=== PATIENT | female | born 1995 | race Hispanic/Latino ===

== ENCOUNTER → 2023-01-26 08:19 | Outpatient (CLI) | payer OTHER, SELFPAY | PROVIDERS: Referring Provider Family Medicine; Visit Provider Family Medicine | DX: Z23 Encounter for immunization (principal) | CPT/HCPCS: 90471; 90686 ==

== ENCOUNTER 2024-02-07 20:11 | Emergency (ER) | payer OTHER, SELFPAY ==
[2024-02-07 20:22] VITALS: BP 144/96; PULSE 93; RESP 18; O2SAT 99; BMI 35.7
--- NOTE | 2024-02-07 20:25 | ED_ITS ---
HPI - General Adult General Chief complaint: Urogenital-Female Stated complaint: poss kidney infection Time Seen by Provider: 02/07/24 20:21 Source: patient Mode of arrival: Ambulatory Limitations: no limitations History of Present Illness HPI narrative: 28-year-old female. History of frequent urinary tract infections. Earlier today checked her urine while at work and was positive for blood. Not having dysuria. Was having some right-sided flank pain. While driving home pain now in the left side. Severe onset. No vaginal bleeding or discharge. No change in bowel habits. No vomiting. Related Data Allergies Allergy/AdvReac Type Severity Reaction Status Date / Time No Known Drug Allergies Allergy Verified 02/07/24 20:27 Review of Systems Gastrointestinal Gastrointestinal: Reports system reviewed and no additional complaints, except as documented Genitourinary Genitourinary: Reports system reviewed and no additional complaints, except as documented Integumentary/Breasts Skin/Breast: Reports system reviewed and no additional complaints, except as documented Exam Initial Vital Signs Initial Vital Signs: Vital Signs Pulse Rate 93 H 02/07/24 20:22 Respiratory Rate 18 02/07/24 20:22 Blood Pressure 144/96 H 02/07/24 20:22 Pulse Oximetry 99 02/07/24 20:22 Oxygen Delivery Method Room Air 02/07/24 20:22 Const General: cooperative, comfortable and No ill appearing HENIN Head: normal to inspection and normocephalic GI Inspection: normal to inspection and non-distended Back/Spine/Pelvis Back: CVA tenderness (Mild bilateral CVA tenderness) Skin General: no rashes or lesions noted Neuro General: patient alert and patient awake Course Orders Ordered: ED Orders 02/07/24 20:32 Urine Microscopic Stat 02/07/24 20:33 CT kidney ureter bladder (KUB) Stat 02/07/24 21:22 Urine Culture Stat Vital Signs Vital signs: Vital Signs - 8 hr 02/07/24 20:22 02/07/24 20:29 02/07/24 21:41 Temperature 99 F Pulse Rate 93 H 71 Respiratory Rate 18 Blood Pressure 144/96 H 132/92 H Pulse Oximetry 99 99 Oxygen Delivery Method Room Air Room Air Medical Decision Making Lab Data Lab results reviewed: Yes I reviewed the patient's lab results. Labs: Lab Results 02/07/24 Range/Units 20:32 Urine RBC 5-10/hpf H (0-5/HPF) Urine WBC 0-1/hpf (0-5/HPF) Ur Squamous Epith Cells 10-30 /hpf H (0-5/HPF) Urine Bacteria Occasional (0-1) (None) Ur Culture Indicated? Cult not indicated Vol Urine Centrifuged 10ml (spun) Point of Care Testing Test Results Negative Urine Dip Bedside Urine Glucose Negative Bedside Urine Bilirubin - Negative Bedside Urine Ketone - Negative Urine Specific Chambers 1.025 Bedside Urine Occult Blood ++ Bedside Urine pH 6.0 Bedside Urine Protein - Negative Bedside Urine Urobilinogen - Negative Bedside Urine Nitrite - Negative Bedside Urine Leukocytes - Negative Esterase Point of care testing: Point of Care Testing Test Results Negative Urine Dip Bedside Urine Glucose Negative Bedside Urine Bilirubin - Negative Bedside Urine Ketone - Negative Urine Specific Chambers 1.025 Bedside Urine Occult Blood ++ Bedside Urine pH 6.0 Bedside Urine Protein - Negative Bedside Urine Urobilinogen - Negative Bedside Urine Nitrite - Negative Bedside Urine Leukocytes - Negative Esterase Imaging Data CT scan - abdomen/pelvis: Radiologist's Impression: PROCEDURE: CT KIDNEY URETER BLADDER (KUB) INDICATIONS: Flank pain and hematuria eval for stone TECHNIQUE: Axial sections were acquired from the lung bases to the pubic symphysis. Coronal and sagittal reformats were performed. For radiation dose reduction, the following was used: automated exposure control, adjustment of mA and/or kV according to patient size. COMPARISON: None. FINDINGS: Image quality: Diagnostic. Lower Chest: No significant findings. URINARY: Right Kidney: No stones or hydronephrosis. Right Ureter: No hydroureter. Left Kidney: No stones or hydronephrosis. Left Ureter: No hydroureter. Bladder: Normal wall thickness. No stones. ABDOMEN: Liver: No contour-deforming solid mass. Gallbladder: Status post cholecystectomy. Biliary ducts: No biliary dilation. Pancreas: No ductal dilation. Spleen: Size is within normal limits. Adrenal Glands: No adrenal nodules. Stomach and Bowel: Normal colonic caliber, without significant wall thickening. Small bowel loops and stomach are unremarkable. Peritoneum: No abnormal intraperitoneal fluid. No free air. Ventral Wall: Small fat containing periumbilical hernia Abdominal Nodes: No enlarged retroperitoneal or mesenteric lymph nodes. Vessels: Aorta and inferior vena cava are normal in size. PELVIS: Pelvic Organs: Mild contour irregularity of the anterior uterus likely related to a subserosal fibroid. Ovaries are symmetric. Pelvic Nodes: Unremarkable. Miscellaneous: No inguinal hernias are seen. Bones: Unremarkable. IMPRESSION: No obstructing stones or hydronephrosis. No acute abnormality identified in the abdomen or pelvis. MDM Narrative Medical decision making narrative: Urinalysis does show blood however no other indications of a urinary tract infection. test negative. CT scan also unremarkable without signs of nephrolithiasis/ureterolithiasis or pyelonephritis. Patient does not have any recent URI symptoms. No skin changes concerning for zoster. Unsure of the exact etiology of the patient's symptoms. A urine culture was pending at the time of her discharge we will wait for that before starting any antibiotics. Patient was given return precautions. Recommended follow-up with primary doctor because of the hematuria. She expressed understanding. Discharge Plan Departure Patient Disposition: Home Clinical Impression: Hematuria Instructions: DI for Hematuria Activity Restrictions/Additional Instructions: There is a urine culture pending at the time of your discharge and we will wait to start on any antibiotics until this results. I do recommend that you contact your primary care doctor for follow-up has you do need to have some follow-up because of the blood in your urine today. Return to the emergency department for new or worsening symptoms. Stand Alone Forms: Patient Portal/API, Work Release Note
[2024-02-07 20:29] VITALS: TEMP 37.2
--- NOTE | 2024-02-07 20:33 | DI.CT.S_ITS ---
PROCEDURE: CT KIDNEY URETER BLADDER (KUB) INDICATIONS: Flank pain and hematuria eval for stone TECHNIQUE: Axial sections were acquired from the lung bases to the pubic symphysis. Coronal and sagittal reformats were performed. For radiation dose reduction, the following was used: automated exposure control, adjustment of mA and/or kV according to patient size. COMPARISON: None. FINDINGS: Image quality: Diagnostic. Lower Chest: No significant findings. URINARY: Right Kidney: No stones or hydronephrosis. Right Ureter: No hydroureter. Left Kidney: No stones or hydronephrosis. Left Ureter: No hydroureter. Bladder: Normal wall thickness. No stones. ABDOMEN: Liver: No contour-deforming solid mass. Gallbladder: Status post cholecystectomy. Biliary ducts: No biliary dilation. Pancreas: No ductal dilation. Spleen: Size is within normal limits. Adrenal Glands: No adrenal nodules. Stomach and Bowel: Normal colonic caliber, without significant wall thickening. Small bowel loops and stomach are unremarkable. Peritoneum: No abnormal intraperitoneal fluid. No free air. Ventral Wall: Small fat containing periumbilical hernia Abdominal Nodes: No enlarged retroperitoneal or mesenteric lymph nodes. Vessels: Aorta and inferior vena cava are normal in size. PELVIS: Pelvic Organs: Mild contour irregularity of the anterior uterus likely related to a subserosal fibroid. Ovaries are symmetric. Pelvic Nodes: Unremarkable. Miscellaneous: No inguinal hernias are seen. Bones: Unremarkable. IMPRESSION: No obstructing stones or hydronephrosis. No acute abnormality identified in the abdomen or pelvis. Approved by: Reji Adkins M.D. on 02/07/2024 at 21:15
[2024-02-07 20:46] LABS: Bacteria Urine Occasional (0-1); RBC Urine 5-10/HPF (0-5/HPF); Urine Volume 10mL (spun); WBC Urine 0-1/HPF (0-5/HPF)
[2024-02-07 20:47] LABS: Culture Indicated Urine Cult Not Indicated; Squamous Epithelial Cell Urine 10-30 /HPF (0-5/HPF)
[2024-02-07 21:41] VITALS: BP 132/92; PULSE 71; O2SAT 99
== END 2024-02-07 21:41 | disposition home or self-care (01) ==
PROVIDERS: Emergency Provider Emergency Medicine
DX: R31.9 Hematuria, unspecified (principal); R10.9 Unspecified abdominal pain; Z87.440 Personal history of urinary (tract) infections
CPT/HCPCS: 74176; 81003; 81015; 81025; 87086; 99283; 99284

== ENCOUNTER → 2025-01-04 09:46 | Outpatient (CLI) | payer OTHER, SELFPAY | LOC: CAR 09:47 | PROVIDERS: Referring Provider Nurse Practitioner Family; Visit Provider Nurse Practitioner Family | DX: R07.9 Chest pain, unspecified (principal) | CPT/HCPCS: 93246 ==

== ENCOUNTER 2025-03-02 13:37 | Emergency (ER) | payer OTHER, SELFPAY ==
[2025-03-02 13:45] VITALS: BP 145/90; PULSE 91; RESP 18; TEMP 36.1; O2SAT 98; BMI 36.3
--- NOTE | 2025-03-02 13:58 | ED.PSYCH ---
HPI - Psych <Katelyn Rascon PA-C - Last Filed: 03/02/25 20:10> General Chief Complaint: Psychiatric Symptoms Stated Complaint: Medication side affects, 2 weeks Time Seen by Provider: 03/02/25 13:41 History of Present Illness HPI Narrative: Ms. Velasco is a pleasant 29-year-old female with a past medical history of ADHD, depression who presents to the emergency department for mental health concern and inability to sleep x2 weeks. Patient reports that she has been taking 300 mg Wellbutrin since November and was doing well however about 2 weeks ago she started having extremely difficult time sleeping. 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 She is also a nursing school. She has been having very difficult time fold staying asleep and falling asleep. This is making her feel very helpless and miserable and she reports passive thoughts of not wanting to be alive, she has also had passive thoughts about cutting her wrists in a bath tub but upon thinking this she immediately informed her she has not had these thoughts again. She has been reaching out to her and friends. She does have a psychiatric nurse practitioner Vy at [facility] however her office was closed today which is why she came to the emergency department. She is concerned that majority for problems or because she is unable to sleep, she has tried hydroxyzine without help. She does not have any active suicidal or homicidal thoughts at this time. She is not using any drugs or alcohol. She denies any medical problems. She denies any pain. Related Data Previous Rx's ?Medication ?Instructions ?Recorded lorazepam 0.5 mg tablet (Ativan) 0.5 mg PO BEDTIME PRN sleep #10 03/02/25 tabs Allergies Allergy/AdvReac Type Severity Reaction Status Date / Time No Known Drug Allergies Allergy Verified 03/02/25 13:45 Review of Systems <Katelyn Rascon PA-C - Last Filed: 03/02/25 20:10> Review of Systems ROS Unobtainable: All systems reviewed & are unremarkable except as noted in HPI and below Patient History <Katelyn Rascon PA-C - Last Filed: 03/02/25 20:10> Social History Smoking Status: Current some day smoker Exam <Katelyn Rascon PA-C - Last Filed: 03/02/25 20:10> Narrative Exam Narrative: GENERAL: 29 year old patient appears stated age. Well-developed patient, in no acute distress. HEAD: Atraumatic. Normocephalic. EYES: PERRL. Extraocular motions intact. No scleral icterus. No injection or drainage. NECK: Trachea midline. Cervical ROM intact. CARDIOVASCULAR: Regular rate and rhythm. RESPIRATORY: ?Nonlabored respirations. ?Speaking in clear, full sentences. ?Clear to auscultation. Breath sounds equal bilaterally. No wheezes, rales, or rhonchi. ? EXTREMITIES: No LE edema. NEURO: AOx3. ?Clear speech. ?Moves all 4 extremities appropriately. SKIN: No rash or erythema of visible areas Initial Vital Signs Initial Vital Signs: Vital Signs Temperature 97 F L 03/02/25 13:45 Pulse Rate 91 H 03/02/25 13:45 Respiratory Rate 18 03/02/25 13:45 Blood Pressure 145/90 H 03/02/25 13:45 Pulse Oximetry 98 03/02/25 13:45 Oxygen Delivery Method Room Air 03/02/25 13:45 <William Ann MD - Last Filed: 03/05/25 16:01> Initial Vital Signs Initial Vital Signs: Vital Signs Temperature 97 F L 03/02/25 13:45 Pulse Rate 91 H 03/02/25 13:45 Respiratory Rate 18 03/02/25 13:45 Blood Pressure 145/90 H 03/02/25 13:45 Pulse Oximetry 98 03/02/25 13:45 Oxygen Delivery Method Room Air 03/02/25 13:45 Course <Katelyn Rascon PA-C - Last Filed: 03/02/25 20:10> Orders Ordered: Discontinued Medications Lorazepam (Lorazepam 0.5 Mg Tablet) 0.5 mg PO NOW ONE Stop: 03/02/25 13:58 Last Admin: 03/02/25 14:13 Dose: 0.5 mg Documented By: Vital Signs Vital signs: Vital Signs - 8 hr 03/02/25 13:45 03/02/25 15:47 Temperature 97 F L Pulse Rate 91 H 97 H Respiratory Rate 18 18 Blood Pressure 145/90 H 121/82 Pulse Oximetry 98 100 Oxygen Delivery Method Room Air Room Air <William Ann MD - Last Filed: 03/05/25 16:01> Orders Ordered: Discontinued Medications Lorazepam (Lorazepam 0.5 Mg Tablet) 0.5 mg PO NOW ONE Stop: 03/02/25 13:58 Last Admin: 03/02/25 14:13 Dose: 0.5 mg Documented By: Vital Signs Vital signs: Vital Signs - 8 hr 03/02/25 13:45 03/02/25 15:47 Temperature 97 F L Pulse Rate 91 H 97 H Respiratory Rate 18 18 Blood Pressure 145/90 H 121/82 Pulse Oximetry 98 100 Oxygen Delivery Method Room Air Room Air MDM - Psych <Katelyn Rascon PA-C - Last Filed: 03/02/25 20:10> Medical Records Attestation: I reviewed the patient's medical records. Lab Data 03/02/25 14:05 03/02/25 14:05 Labs: Lab Results 03/02/25 03/02/25 Range/Units 14:05 14:48 WBC 7.5 (4.5-11.0) X10^3/uL RBC 5.11 (4.0-5.2) X10^6/uL Hgb 15.6 (12.0-16.0) g/dL Hct 45.9 (36-46) % MCV 89.8 (80-100) fL MCH 30.4 (26-34) PG MCHC 33.9 (30-36) % RDW 13.1 (11.6-14.8) % Plt Count 261 (150-400) X10^3/uL Neut % (Auto) 70.7 (50-75) % Lymph % (Auto) 22.0 L (25-40) % [place] % (Auto) 5.6 (3-14) % Eos % (Auto) 1.1 L (2-4) % Baso % (Auto) 0.6 (0-2) % Neut # (Auto) 5300 (2874-2048) /uL Lymph # (Auto) 1600 (0113-0212) /uL [place] # (Auto) 400 (0-900) /uL Eos # (Auto) 100 (0-450) /uL Baso # (Auto) 0 (0-100) /uL Sodium 141 (137-145) mmol/L Potassium 4.0 (3.4-5.1) mmol/L Chloride 105 (98-107) mmol/L Carbon Dioxide 24 (22-32) mmol/L BUN 13 (7-17) mg/dL Creatinine 0.73 (0.52-1.04) mg/dL Estimated GFR > 60 (>60) mL/min BUN/Creatinine Ratio 17.8 (6-22) Glucose 108 H (70-99) mg/dL Calcium 9.4 (8.4-10.2) mg/dL Total Bilirubin 0.7 (0.2-1.3) mg/dL AST 52 H (14-36) IU/L ALT 95 H (<35) IU/L Alkaline Phosphatase 68 (38-126) U/L Total Protein 8.6 H (6.3-8.2) g/dL Albumin 5.3 H (3.5-5.0) g/dL Globulin 3.3 (1.7-4.1) g/dL Albumin/Globulin Ratio 1.6 (1.0-2.8) TSH 1.78 (0.47-4.68) uIU/mL Urine RBC 1-5/hpf (0-5/HPF) Urine WBC 0-1/hpf (0-5/HPF) Ur Squamous Epith Cells 0-1 /hpf D (0-5/HPF) Urine Bacteria Occasional (0-1) (None) Ur Culture Indicated? Cult not indicated Vol Urine Centrifuged 10ml (spun) U Opiates 300ng/mL cut Negative (Negative) Ur Oxycodone Screen Negative (Negative) Urine Methadone Screen Negative (Negative) Ur Barbiturates Screen Negative (Negative) U Tricyclic Antidepress Negative (Negative) Ur Phencyclidine Scrn Negative (Negative) Ur Amphetamines Screen Negative (Negative) U Methamphetamines Scrn Negative (Negative) Ur MDMA Scrn (Ecstasy) Negative (Negative) U Benzodiazepines Scrn Negative (Negative) Urine Cocaine Screen Negative (Negative) U Marijuana (THC) Screen Negative (Negative) Urine pH Normal (Normal) Urine Specific [place] Normal (Normal) Ur Creatinine Normal (Normal) Point of Care Testing Test Results Negative Urine Dip Bedside Urine Glucose Negative Bedside Urine Bilirubin - Negative Bedside Urine Ketone - Negative Urine Specific [place] 1.025 Bedside Urine Occult Blood ++ Bedside Urine pH 6.0 Bedside Urine Protein +/- 15 Bedside Urine Urobilinogen - Negative Bedside Urine Nitrite - Negative Bedside Urine Leukocytes - Negative Esterase MDM Narrative Medical decision making narrative: 29-year-old female with a past medical history of ADHD, depression who presents to the emergency department for mental health concern and inability to sleep x2 weeks. She is not having active suicidal plan or ideation however she was having some of these thoughts earlier. Differential diagnosis includes but is not limited to suicidal ideation, depression, bipolar disorder, anxiety, insomnia, etc. On exam patient is in no acute distress, nontoxic appearing, vital signs appropriate. She is currently taking Wellbutrin 300 mg, she is attempting to use hydroxyzine as needed for insomnia however this is not helping. She does have a therapist and she does have a psychiatrist however she is unable to speak with them today as the office is closed. She is hoping for short-term medication management to help with sleep and also assistance with further psychiatry management. She is not interested in inpatient psychiatric admission, she does live with her who is supportive. Discussed case with social sciences department chair Gabriella. We will obtain baseline psychiatric lab work, treat with low-dose Ativan for anxiety at this time. White blood cell count normal 7.5, platelets 261, sodium 141, potassium 4.0, BUN 13, creatinine 0.73, AST ALT slightly elevated 50-95. TSH WNL. Patient feeling much better with some anxiety medication on board. After creating a plan between the patient myself and with SOLUTION STRATEGIST, we came up with an outpatient management plan for the patient including prompt follow up with her therapist, psychiatrist for medication adjustment, and in the meantime very short course of Ativan if needed for severe breakthrough anxiety. Patient's spouse is able to come to the ER and get her. Patient is happy with this plan, not actively experiencing SI or HI. Discussed risks associated with the benzodiazepines. Discussed strict ER return precautions with the patient. She verbalized understanding of all information agreeable with the plan. She is stable for discharge home. <William Ann MD - Last Filed: 03/05/25 16:01> Lab Data Labs: Lab Results 03/02/25 03/02/25 Range/Units 14:05 14:48 WBC 7.5 (4.5-11.0) X10^3/uL RBC 5.11 (4.0-5.2) X10^6/uL Hgb 15.6 (12.0-16.0) g/dL Hct 45.9 (36-46) % MCV 89.8 (80-100) fL MCH 30.4 (26-34) PG MCHC 33.9 (30-36) % RDW 13.1 (11.6-14.8) % Plt Count 261 (150-400) X10^3/uL Neut % (Auto) 70.7 (50-75) % Lymph % (Auto) 22.0 L (25-40) % [place] % (Auto) 5.6 (3-14) % Eos % (Auto) 1.1 L (2-4) % Baso % (Auto) 0.6 (0-2) % Neut # (Auto) 5300 (6450-4188) /uL Lymph # (Auto) 1600 (7136-3468) /uL [place] # (Auto) 400 (0-900) /uL Eos # (Auto) 100 (0-450) /uL Baso # (Auto) 0 (0-100) /uL Sodium 141 (137-145) mmol/L Potassium 4.0 (3.4-5.1) mmol/L Chloride 105 (98-107) mmol/L Carbon Dioxide 24 (22-32) mmol/L BUN 13 (7-17) mg/dL Creatinine 0.73 (0.52-1.04) mg/dL Estimated GFR > 60 (>60) mL/min BUN/Creatinine Ratio 17.8 (6-22) Glucose 108 H (70-99) mg/dL Calcium 9.4 (8.4-10.2) mg/dL Total Bilirubin 0.7 (0.2-1.3) mg/dL AST 52 H (14-36) IU/L ALT 95 H (<35) IU/L Alkaline Phosphatase 68 (38-126) U/L Total Protein 8.6 H (6.3-8.2) g/dL Albumin 5.3 H (3.5-5.0) g/dL Globulin 3.3 (1.7-4.1) g/dL Albumin/Globulin Ratio 1.6 (1.0-2.8) TSH 1.78 (0.47-4.68) uIU/mL Urine RBC 1-5/hpf (0-5/HPF) Urine WBC 0-1/hpf (0-5/HPF) Ur Squamous Epith Cells 0-1 /hpf D (0-5/HPF) Urine Bacteria Occasional (0-1) (None) Ur Culture Indicated? Cult not indicated Vol Urine Centrifuged 10ml (spun) U Opiates 300ng/mL cut Negative (Negative) Ur Oxycodone Screen Negative (Negative) Urine Methadone Screen Negative (Negative) Ur Barbiturates Screen Negative (Negative) U Tricyclic Antidepress Negative (Negative) Ur Phencyclidine Scrn Negative (Negative) Ur Amphetamines Screen Negative (Negative) U Methamphetamines Scrn Negative (Negative) Ur MDMA Scrn (Ecstasy) Negative (Negative) U Benzodiazepines Scrn Negative (Negative) Urine Cocaine Screen Negative (Negative) U Marijuana (THC) Screen Negative (Negative) Urine pH Normal (Normal) Urine Specific [place] Normal (Normal) Ur Creatinine Normal (Normal) Point of Care Testing Test Results Negative Urine Dip Bedside Urine Glucose Negative Bedside Urine Bilirubin - Negative Bedside Urine Ketone - Negative Urine Specific [place] 1.025 Bedside Urine Occult Blood ++ Bedside Urine pH 6.0 Bedside Urine Protein +/- 15 Bedside Urine Urobilinogen - Negative Bedside Urine Nitrite - Negative Bedside Urine Leukocytes - Negative Esterase Discharge Plan Departure Patient Disposition: Home Clinical Impression: Depression Qualifiers: Depression Type: unspecified Qualified Code(s): F32.A - Depression, unspecified Insomnia Qualifiers: Insomnia type: unspecified Qualified Code(s): G47.00 - Insomnia, unspecified Instructions: DI for Insomnia Activity Restrictions/Additional Instructions: Dear Rod, Thank you for coming to the emergency department. Today we worked with our social sciences department chair Gabriella to help create an outpatient plan for you. I prescribed you a medication called Ativan which is a benzodiazepine. Please use this very infrequently as needed for severe anxiety or sleep. The most important part of your plan will be prompt follow up with your therapist and your psychiatrist. At this time I would like you to rest, hydrate, and focus on yourself. Please return to the emergency department if you develop any concerns about your mental or physical health. Please follow up with your primary care doctor within the next 2-3 days for ER follow-up. (If you do not have a PCP you can call [phone]. ?to schedule an appointment with an [facility] Primary Care Provider) IF YOU DEVELOP ANY NEW OR WORSENING SYMPTOMS, RETURN TO THE ER! Please read the attached instructions, they highlight more specific treatments and interventions for you at home. Thank you for letting me participate in your care, Katelyn Rascon PA-C Prescriptions: New lorazepam [Ativan] 0.5 mg tablet 0.5 mg PO BEDTIME PRN (Reason: sleep) Qty: 10 0RF Referrals: Provider,Thierno VALDIVIA [Primary Care Provider, Family Practice] Stand Alone Forms: Patient Portal/API, Work Release Note ED Sign-out <William Ann MD - Last Filed: 03/05/25 16:01> [facility] I was immediately available in the department for consultation. ?This documentation has been reviewed and I agree with assessment and plan. Supervised by William Ann MD
[2025-03-02 14:18] LABS: Add Manual Diff / Slide Review NO; Hematocrit 45.9 % (36-46); Hemoglobin 15.6 g/dL (12.0-16.0); Lymphocytes Absolute Auto 1600 /uL (1100-4500); Mean Corpuscular HGB Conc 33.9 % (30-36); Mean Corpuscular Hemoglobin 30.4 PG (26-34); Mean Corpuscular Volume 89.8 fL (80-100); Platelet Count 261 X10^3/uL (150-400)
[2025-03-02 14:29] LABS: Alanine Aminotransferase 95 IU/L (<35); Albumin 5.3 g/dL (3.5-5.0); Albumin Globulin Ratio 1.6 (1.0-2.8); Alkaline Phosphatase 68 U/L (38-126); Blood Urea Nitrogen 13 mg/dL (7-17); Calcium 9.4 mg/dL (8.4-10.2); Carbon Dioxide 24 mmol/L (22-32); Chloride 105 mmol/L (98-107); Estimated Glomerular Filt Rate > 60 mL/min (>60); Globulin 3.3 g/dL (1.7-4.1); Glucose 108 mg/dL (70-99); HEMOLYSIS < 15 (0-50); Potassium 4.0 mmol/L (3.4-5.1); Sodium 141 mmol/L (137-145); Total Protein 8.6 g/dL (6.3-8.2)
[2025-03-02 15:00] LABS: TSH w/ Reflex to FT4 1.78 uIU/mL (0.47-4.68)
[2025-03-02 15:12] LABS: Ur Specific Gravity Normal (Normal)
[2025-03-02 15:13] LABS: UR Morphine/Opiate cutoff 300 Negative (Negative); Urine MDMA Negative (Negative); Urine Methamphetamines Negative (Negative); Urine Tetrahydrocannabinol Negative (Negative); Urine Tricyclic Antidepressant Negative (Negative)
[2025-03-02 15:15] LABS: Culture Indicated Urine Cult Not Indicated
[2025-03-02 15:47] VITALS: BP 121/82; PULSE 97; RESP 18; O2SAT 100
--- NOTE | 2025-03-02 16:16 | CM.SWNOTE ---
ED ACCOUNTS RECEIVABLE COORDINATOR Assessment Note Patient is 29 y/o female who presents to the ED via POV due to concern for insomnia, passive SI and anxiety. Patient endorses that she called her Psychiatrist [facility] [employer]'s office but they were closed today and patient needed immediate assistance to address lack of sleep. Patient endorses she has not been able to sleep the last few days and prior to that over the last week she has only been able to sleep 2-4 hours each night Patient's PCP is at [facility], patient has [employer] insurance. Patient sees facility rehab director Vy Medellin at [facility] and sees therapist Tori Corado via telehealth at [facility] Patient has hx of ADHD and Depression, patient is prescribed 300mg of Wellbutrin and Hydroxyzine. ACCOUNTS RECEIVABLE COORDINATOR enters triage to meet with patient, present in room is patient and video systems engineer. This ACCOUNTS RECEIVABLE COORDINATOR is familiar to patient. Patient presents as A/Ox4 and tearful. Patient endorses that she has been stressed due to lack of sleep and has had to call out of work that last few days and today her friend gave her the advice to quit her job at [employer] and patient resigned today. 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 Patient endorses some concern for stress at home as well. Patient endorses she has been having passive SI with some thoughts of plans but no intent, patient endorses that she thought of slitting her wrists in the bathtub, patient denies any intent to act on this thought and denies current SI. Patient denies hx of self harm or suicide attempts. Patient states that she woke up her or called her friends to remove SI thoughts. Patient presented to the ED to today to address sleep concerns. Patient has good supports from friends and spouse. Patient receives trial Ativan dose in the ED and responds well to the medication. ACCOUNTS RECEIVABLE COORDINATOR speaks with patient throughout the ED stay. Patient coordinates to pickling drum operator patient upon medical clearance. ACCOUNTS RECEIVABLE COORDINATOR calls patient's providers and leaves messages requesting sooner follow up and to coordinate with patient. Patient endorses that she has a therapy appt on 03/14/25. Patient contracts for safety, denies current SI and endorses that she is feeling much better. It is the opinion of this ACCOUNTS RECEIVABLE COORDINATOR that patient is safe to d/c to home upon medical clearance with family. ACCOUNTS RECEIVABLE COORDINATOR reviews this with ED provider Katelyn Rascon PA-C who indicates agreement and understanding. Plan: Patient to d/c to home with family upon medical clearance, patient prescribed PRN rx for Ativan, patient to f/u with providers, patient provided work note for the next few days. LEILA EagleSW
== END 2025-03-02 16:06 | disposition home or self-care (01) ==
PROVIDERS: Emergency Provider Physician Assistant
DX: F32.A Depression, unspecified (principal); G47.00 Insomnia, unspecified
CPT/HCPCS: 80053; 80305; 81003; 81015; 81025; 84443; 85025; 99283